=== PATIENT | female | born 1980 | race Caucasian/White ===

== ENCOUNTER 2017-09-12 18:08 | Emergency (ER) | payer MEDICAID ==
[~2017-09-12] VITALS: Ht 170.2 cm; Wt 63.5 kg
[2017-09-12] MEDS ORDERED: diphenhdrAMINE HCL 25 MG CAP PO ONE (19:00)
[2017-09-12] MEDS ORDERED: PROMETHAZINE HCL 25 MG/ML 1ML IM ONE (19:00)
[2017-09-12] MEDS ORDERED: KETOROLAC TROMETH 60MG/2ML VIAL IM ONE (19:00)
[2017-09-12 19:23] VITALS: BP 122/76
== END 2017-09-12 19:53 | disposition home or self-care (01) ==
LOC: ER 18:08
DX: R51 Headache (principal); R42 Dizziness and giddiness; H53.8 Other visual disturbances; F12.10 Cannabis abuse, uncomplicated; Y09 Assault by unspecified means; Y93.89 Activity, other specified; Y99.8 Other external cause status; Y92.89 Other specified places as the place of occurrence of the external cause
CPT/HCPCS: 70450; 96372; 99284; J1885; J2550

== ENCOUNTER 2019-01-29 14:50 | Emergency (ER) | payer MEDICAID, OTHER ==
[~2019-01-29] VITALS: Ht 170.2 cm; Wt 79.4 kg
[2019-01-29 15:10] VITALS: BP 150/91
[2019-01-29] MEDS ORDERED: HYDROcodone-ACET 7.5/325MG TAB PO ONE ×2 (16:30→16:45)
== END 2019-01-29 17:07 | disposition home or self-care (01) ==
LOC: ER 15:07
DX: K04.7 Periapical abscess without sinus (principal); Z88.6 Allergy status to analgesic agent